=== PATIENT | female | born 1995 | race American Indian/Alaskan Native ===

== ENCOUNTER 2020-09-13 17:53 | Emergency (ER) | payer OTHER ==
[2020-09-13 18:02] VITALS: BP 108/68
[2020-09-13] MEDS ORDERED: ACETAMINOPHEN 325 MG TAB PO ONE (18:13)
--- NOTE | 2020-09-13 18:17 | Emergency Department Report ---
ED HPI - General Chief complaint: Vaginal Bleeding Stated complaint: /LITE BLEEDING/CRAMPS Time Seen by Provider: 09/13/20 18:11 Source: patient Mode of arrival: Ambulatory Limitations: No Limitations - History of Present Illness Initial comments: Patient is a 25-year-old female presents emergency room complaints of lower abdominal cramping that began today. She states that she began having vaginal spotting at 3 PM today when she wipes. She states that she took a positive test a week ago. She states that she does not have an appointment with her [employer] until September 24 and her [employer] is in [facility]. She denies any fever, vomiting, diarrhea, dysuria, abnormal vaginal discharge. She states her last menstrual cycle was July. She denies any past medical history. No allergies to medications. /P: 1/A: 0 - Related Data Allergies Allergy/AdvReac Type Severity Reaction Status Date / Time strawberry Allergy Swelling Verified 09/13/20 17:54 ED Review of Systems ROS: Stated complaint: /LITE BLEEDING/CRAMPS Other details as noted in HPI Comment: All other systems reviewed and negative ED Past Medical Hx - Past Medical History Hx Headaches / Migraines: Yes - Surgical History Hx Cholecystectomy: Yes ED Physical Exam - General Limitations: No Limitations General appearance: alert, in no apparent distress - Head Head exam: Present: atraumatic, normocephalic - Eye Eye exam: Present: normal appearance - ENT ENT exam: Present: mucous membranes moist - Respiratory Respiratory exam: Present: normal lung sounds bilaterally. Absent: respiratory distress, wheezes, rales, rhonchi, stridor, chest wall tenderness, accessory muscle use, decreased breath sounds, prolonged expiratory - Cardiovascular Cardiovascular Exam: Present: regular rate, normal rhythm, normal heart sounds. Absent: systolic murmur, diastolic murmur, rubs, gallop - GI/Abdominal GI/Abdominal exam: Present: soft, normal bowel sounds. Absent: distended, tenderness, guarding, rebound, rigid - Neurological Exam Neurological exam: Present: alert, oriented X3 - Psychiatric Psychiatric exam: Present: normal affect, normal mood - Skin Skin exam: Present: warm, dry, intact ED Course Vital Signs 09/13/20 18:01 Temperature 98.6 F Pulse Rate 93 H Respiratory 18 Rate Blood Pressure 108/68 O2 Sat by Pulse 100 Oximetry ED Medical Decision Making - Lab Data Result diagrams: 09/13/20 18:17 09/13/20 18:17 Lab Results 09/13/20 09/13/20 09/13/20 Range/Units 18:17 18:17 18:17 WBC 9.2 (4.5-11.0) K/mm3 RBC 5.31 H (3.65-5.03) M/mm3 Hgb 11.6 (10.1-14.3) gm/dl Hct 36.2 (30.3-42.9) % MCV 68 L (79-97) fl MCH 22 L (28-32) pg MCHC 32 (30-34) % RDW 16.8 H (13.2-15.2) % Plt Count 140 (140-440) K/mm3 Lymph % (Auto) 23.4 (13.4-35.0) % Dundy % (Auto) 4.3 (0.0-7.3) % Eos % (Auto) 1.4 (0.0-4.3) % Baso % (Auto) 0.6 (0.0-1.8) % Lymph # (Auto) 2.1 (1.2-5.4) K/mm3 Dundy # (Auto) 0.4 (0.0-0.8) K/mm3 Eos # (Auto) 0.1 (0.0-0.4) K/mm3 Baso # (Auto) 0.1 (0.0-0.1) K/mm3 Seg Neutrophils % 70.3 H (40.0-70.0) % Seg Neutrophils # 6.4 (1.8-7.7) K/mm3 Sodium 137 (137-145) mmol/L Potassium 3.7 (3.6-5.0) mmol/L Chloride 104.1 (98-107) mmol/L Carbon Dioxide 27 (22-30) mmol/L Anion Gap 10 mmol/L BUN 12 (7-17) mg/dL Creatinine 0.6 (0.6-1.2) mg/dL Estimated GFR > 60 ml/min BUN/Creatinine Ratio 20 % Glucose 99 (65-100) mg/dL Calcium 9.0 (8.4-10.2) mg/dL Total Bilirubin < 0.20 (0.1-1.2) mg/dL AST 10 (5-40) units/L ALT 8 (7-56) units/L Alkaline Phosphatase 63 (35-129) units/L Total Protein 6.4 (6.3-8.2) g/dL Albumin 3.9 (3.9-5) g/dL Albumin/Globulin Ratio 1.6 % HCG, Quant 5641 H (0-4) mIU/mL Urine Color (Yellow) Urine Turbidity (Clear) Urine pH (5.0-7.0) Ur Specific [place] (1.003-1.030) Urine Protein (Negative) mg/dL Urine Glucose (UA) (Negative) mg/dL Urine Ketones (Negative) mg/dL Urine Blood (Negative) Urine Nitrite (Negative) Urine Bilirubin (Negative) Urine Urobilinogen (<2.0) mg/dL Ur Leukocyte Esterase (Negative) Urine WBC (Auto) (0.0-6.0) /HPF Urine RBC (Auto) (0.0-6.0) /HPF U Epithel Cells (Auto) (0-13.0) /HPF Urine Mucus /HPF Blood Type 09/13/20 09/13/20 Range/Units 18:17 20:38 WBC (4.5-11.0) K/mm3 RBC (3.65-5.03) M/mm3 Hgb (10.1-14.3) gm/dl Hct (30.3-42.9) % MCV (79-97) fl MCH (28-32) pg MCHC (30-34) % RDW (13.2-15.2) % Plt Count (140-440) K/mm3 Lymph % (Auto) (13.4-35.0) % Dundy % (Auto) (0.0-7.3) % Eos % (Auto) (0.0-4.3) % Baso % (Auto) (0.0-1.8) % Lymph # (Auto) (1.2-5.4) K/mm3 Dundy # (Auto) (0.0-0.8) K/mm3 Eos # (Auto) (0.0-0.4) K/mm3 Baso # (Auto) (0.0-0.1) K/mm3 Seg Neutrophils % (40.0-70.0) % Seg Neutrophils # (1.8-7.7) K/mm3 Sodium (137-145) mmol/L Potassium (3.6-5.0) mmol/L Chloride (98-107) mmol/L Carbon Dioxide (22-30) mmol/L Anion Gap mmol/L BUN (7-17) mg/dL Creatinine (0.6-1.2) mg/dL Estimated GFR ml/min BUN/Creatinine Ratio % Glucose (65-100) mg/dL Calcium (8.4-10.2) mg/dL Total Bilirubin (0.1-1.2) mg/dL AST (5-40) units/L ALT (7-56) units/L Alkaline Phosphatase (35-129) units/L Total Protein (6.3-8.2) g/dL Albumin (3.9-5) g/dL Albumin/Globulin Ratio % HCG, Quant (0-4) mIU/mL Urine Color Yellow (Yellow) Urine Turbidity Clear (Clear) Urine pH 5.0 (5.0-7.0) Ur Specific [place] 1.025 (1.003-1.030) Urine Protein <15 mg/dl (Negative) mg/dL Urine Glucose (UA) Neg (Negative) mg/dL Urine Ketones Neg (Negative) mg/dL Urine Blood Neg (Negative) Urine Nitrite Neg (Negative) Urine Bilirubin Neg (Negative) Urine Urobilinogen < 2.0 (<2.0) mg/dL Ur Leukocyte Esterase Neg (Negative) Urine WBC (Auto) 1.0 (0.0-6.0) /HPF Urine RBC (Auto) < 1.0 (0.0-6.0) /HPF U Epithel Cells (Auto) 2.0 (0-13.0) /HPF Urine Mucus 2+ /HPF Blood Type O POSITIVE - Radiology Data Radiology results: report reviewed Ordering Physician: CARLOS LUZ Date of Service: 09/13/20 Procedure(s): US OB <= 14 weeks fetus Accession Number(s): [id number] cc: CARLOS LUZ OBSTETRICAL ULTRASOUND HISTORY: . Bleeding. Imaging was performed by transabdominally and endovaginally. The uterus measures 10 x 4.8 x 5.5 cm. Endometrial stripe measures 9.7 cm. An early gestational sac is dated 5 weeks 5 days. No pole or yolk sac is identified. Heterogeneity is seen at the uterus which may represent fibroid disease or adenomyosis. No bleed is identified. Right ovary measures 2.9 x 2.6 x 3.4 cm. Left ovary measures 2.9 x 2.5 x 2.3 cm. Small complex cysts are seen bilaterally. Both ovaries contain flow. Negative for adnexal mass or fluid. IMPRESSION: 1. Early gestational sac. 2. Suspected fibroid disease versus adenomyosis can be evaluated on follow-up. 3. Small bilateral complex ovarian cysts. Signer Name: Gagan Calix MD Signed: 09/13/2020 8:58 PM Workstation Name: [id number] Transcribed By: ES Dictated By: Gagan Calix MD Electronically Authenticated By: Gagan Calix MD Signed Date/Time: 09/13/202057 DD/ 53 TD/TT: - Medical Decision Making Patient is a 25-year-old female presents emergency room complaints of lower abdominal cramping that began today. She states that she began having vaginal spotting at 3 PM today when she wipes. She states that she took a positive test a week ago. She states that she does not have an appointment with her [employer] until September 24 and her [employer] is in [facility]. She denies any fever, vomiting, diarrhea, dysuria, abnormal vaginal discharge. She states her last menstrual cycle was July. She denies any past medical history. No allergies to medications. /P: 1/A: 0. vitals are normal. No abdominal tenderness on exam, no guarding, no rebound, no rigidity, normal bowel sounds, no peritoneal signs. Labs are normal. hCG quant is 5641. OB ultrasound: 1. Early gestational sac. 2. Suspected fibroid disease versus adenomyosis can be evaluated on follow-up. 3. Small bilateral complex ovarian cysts. UA is within normal limits. Patient given Tylenol in the emergency department and symptoms improved. discussed all results with patient and answered questions. Discussed threatened miscarriage with patient and the importance of follow-up for repeat hCG quant, she verbalized understanding. advised pt May take Tylenol as needed for discomfort. Increase your water intake. Please take a vitamin [id number]. Practice pelvic rest. Follow-up with a primary care doctor. Follow-up with [employer]. You need to have a repeat hCG quant in 2 days. Today 09/13/2020 your hCG quant is 5641. Return to emergency room for any new or worsening symptoms. Critical care attestation.: If time is entered above; I have spent that time in minutes in the direct care of this critically ill patient, excluding procedure time. ED Disposition Clinical Impression: Abdominal cramping, Spotting, Threatened miscarriage Ovarian cyst Qualifiers: Laterality: bilateral Qualified Code(s): N83.201 - Unspecified ovarian cyst, right side Disposition: TO HOME OR SELFCARE Is pt being admited?: No Does the pt Need Aspirin: No Condition: Stable Instructions: Threatened Miscarriage, Ovarian Cyst Additional Instructions: May take Tylenol as needed for discomfort. Increase your water intake. Please take a vitamin [id number]. Practice pelvic rest. Follow-up with a primary care doctor. Follow-up with [employer]. You need to have a repeat hCG quant in 2 days. Today 09/13/2020 your hCG quant is 5641. Return to emergency room for any new or worsening symptoms. Referrals: PRIMARY CARE, [Primary Care Provider] - 2-3 Days your, preparer samples and repairs [Other] - 2-3 Days Time of Disposition: 21:05 Print Language: FIJIAN
[2020-09-13 18:32] LABS: Basophils # (Auto) 0.1 K/mm3 (0.0-0.1); Basophils % (Auto) 0.6 % (0.0-1.8); Eosinophils # (Auto) 0.1 K/mm3 (0.0-0.4); Eosinophils % (Auto) 1.4 % (0.0-4.3); Hematocrit 36.2 % (30.3-42.9); Hemoglobin 11.6 gm/dl (10.1-14.3); Lymphocytes # (Auto) 2.1 K/mm3 (1.2-5.4); Lymphocytes % (Auto) 23.4 % (13.4-35.0); Mean Corpuscular HGB Conc 32 % (30-34); Monocytes # (Auto) 0.4 K/mm3 (0.0-0.8); Monocytes % (Auto) 4.3 % (0.0-7.3); Platelet Count 140 K/mm3 (140-440); Red Blood Count 5.31 M/mm3 (3.65-5.03); Red Cell Distribution Width 16.8 % (13.2-15.2)
[2020-09-13 18:37] LABS: Mean Corpuscular Volume 68 fl (79-97)
[2020-09-13 18:49] LABS: Alanine Aminotransferase 8 units/L (7-56); Albumin 3.9 g/dL (3.9-5); Blood Urea Nitrogen 12 mg/dL (7-17); Hemolysis Index 3
[2020-09-13 18:56] LABS: BUN/Creatinine Ratio 20
[2020-09-13 20:56] LABS: Bilirubin,Urine NEG (Negative); Blood,Urine NEG (Negative); Color,Urine Yellow (Yellow); Mucus,Urine 2+ /HPF; Protein,Urine <15 mg/dL mg/dL (Negative); RBC,Urine < 1.0 /HPF (0.0-6.0); Urobilinogen,Urine < 2.0 mg/dL (<2.0)
--- NOTE | 2020-09-13 21:02 | Ultrasound Report ---
OBSTETRICAL ULTRASOUND HISTORY: . Bleeding. Imaging was performed by transabdominally and endovaginally. The uterus measures 10 x 4.8 x 5.5 cm. Endometrial stripe measures 9.7 cm. An early gestational sac is dated 5 weeks 5 days. No pole or yolk sac is identified. Heterogene ity is seen at the uterus which may represent fibroid disease or adenomyosis. No bleed is identified. Right ovary measures 2.9 x 2.6 x 3.4 cm. Left ovary measures 2.9 x 2.5 x 2.3 cm. Small complex cysts are seen bilaterally. Both ovaries contain flow. Negative for adnexal mass or fluid. IMPRESSION: 1. Early gestational sac. 2. Suspected fibroid disease versus adenomyosis can be evaluated on follow-up. 3. Small bilateral complex ovarian cysts. Signer Name: Gagan Calix MD Signed: 09/13/2020 8:58 PM Workstation Name: [id number]
== END 2020-09-13 21:16 | disposition home or self-care (01) ==
LOC: ED 17:53
DX: O26.891 Other specified pregnancy related conditions, first trimester (principal); O20.0 Threatened abortion; O26.851 Spotting complicating pregnancy, first trimester; N83.209 Unspecified ovarian cyst, unspecified side; R25.2 Cramp and spasm; Z90.49 Acquired absence of other specified parts of digestive tract; Z3A.01 Less than 8 weeks gestation of pregnancy; Z91.018 Allergy to other foods
CPT/HCPCS: 36415; 76801; 76817; 80053; 81001; 84702; 85025; 86900; 86901